=== PATIENT | male | born 1975 | race Caucasian/White ===

== ENCOUNTER 2016-06-27 17:02 | Emergency (ER) | payer OTHER ==
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
[~2016-06-27 17:02] MED LIST: NO MEDICATIONS
== END 2016-06-27 19:44 | disposition home or self-care (01) ==
LOC: SED 17:02
DX: S13.4XXA Sprain of ligaments of cervical spine, initial encounter (principal); R51 Headache; J01.90 Acute sinusitis, unspecified; V43.52XA Car driver injured in collision with other type car in traffic accident, initial encounter; Y92.410 Unspecified street and highway as the place of occurrence of the external cause
CPT/HCPCS: 70450; 72125; 96372; 99284; J1885